=== PATIENT | female | born 1975 | race Caucasian/White ===

== ENCOUNTER → 2016-05-30 | Outpatient (CLI) | payer OTHER ==
--- NOTE | 2016-05-30 12:32 | REP ---
DIAGNOSTIC MAMMOGRAM WITH RIGHT BREAST ULTRASOUND: Bilateral mammography performed in the MLO and CC projections. Reportedly, the patient has painful swelling in the right axillary region. The area is marked on the skin with a triangular marker. Additional spot compression views are obtained. Breast parenchyma is moderately dense bilaterally. At the site of the reported palpable painful swelling in the right axillary region is ill-defined opacity best seen on MLO and ML views. Margins are irregular and somewhat ill-defined. Maximum diameter is slightly greater than 2 cm. The abnormality appears to be too far posterior to include on the CC and axillary CC views. I see no other evidence of mass or suspicious clusters of microcalcifications. Real-time sonographic evaluation of the right axillary region demonstrates an oval hypoechoic nodule 8 x 7 x 3 mm. This may represent a lymph node. No other mass is seen in this region. IMPRESSION: Irregular and ill-defined soft tissue nodular density in the right axillary region essentially only seen on MLO and ML views. Maximum diameter is slightly greater than 2 cm. This is not well seen on CC and axillary CC views. Oval hypoechoic nodule in the right axilla by ultrasound is only 8 x 7 x 3 mm and does not account for the density seen on the mammogram. I would recommend biopsy of this area. Stereotactic biopsy would likely be unsuccessful due to its far posterior axillary position. Alternatively I would recommend needle localization and excisional biopsy. MRI could be performed to further evaluate. BI-RADS/ACR category 4 mammogram. Suspicious abnormality - biopsy should be considered. Usually requires biopsy. This mammogram was interpreted with the aid of an FDA-approved computer-aided detection system. A. Negative x-ray reports should not delay biopsy if a dominant or clinically suspicious mass is present. B. Four to eight percent of cancers are not identified by x-ray. C. Adenosis and dense breasts may obscure an underlying neoplasm. The patient states she had a clinical breast exam in 05/2016. The patient letter being requested is M4. Signed by Todd Blanton MD 05/30/2016 08:10 P
== END ==
LOC: M RAD 09:24
PROVIDERS: ATTEND Obstetrics & Gynecology
DX: N63 Unspecified lump in breast (principal)
CPT/HCPCS: 76642; G0204